=== PATIENT | female | born 1995 | race American Indian/Alaskan Native ===

== ENCOUNTER 2018-07-23 14:36 | Emergency (ER) | payer OTHER ==
--- NOTE | 2018-07-23 14:55 | Emergency Department Report ---
Blank Doc - Documentation Documentation: This is a 23 y.o. female that presents with hematuria and pelvic pain x 4 days. LMP 07/10/2018, A3. Ordered UA and hcg Fast track for further evaluation.
[2018-07-23 16:07] LABS: Bacteria,Urine 4+ /HPF (Negative); Bilirubin,Urine NEG (Negative); Blood,Urine NEG (Negative); Color,Urine Yellow (Yellow); Mucus,Urine FEW /HPF; Protein,Urine <15 mg/dL mg/dL (Negative); Urobilinogen,Urine < 2.0 mg/dL (<2.0)
[2018-07-23 16:13] LABS: HCG Qualitative,Urine Negative (Negative)
[2018-07-23 16:35] VITALS: BP 110/61
[2018-07-23] MEDS ORDERED: MACROBID PO ONE (16:44)
--- NOTE | 2018-07-23 16:55 | Emergency Department Report ---
HPI - General Chief Complaint: Abdominal Pain Time Seen by Provider: 07/23/18 14:52 - HPI HPI: 23 year-old female presents to the emergency department with complaint of a few days of some lower abdominal and/or pelvic discomfort. She denies any dysuria but says that she has noticed some blood in her urine has also had some mild pinkish vaginal discharge. She denies any past medical history. She has not taken anything for her symptoms prior to presentation. She does admit to one previous episode of an ovarian cyst and thought that this could be a recurrent issue. She does not have any primary care physician or [facility]. ED Past Medical Hx - Past Medical History Additional medical history: Ovarian cyst - Surgical History Past Surgical History?: No - Social History Smoking Status: Never Smoker Substance Use Type: Marijuana - Medications Home Medications: Home Medications Medication Instructions Recorded Confirmed Last Taken Type Nitrofurantoin Monohyd/M-Cryst 100 mg PO BID #14 capsule 07/23/18 Unknown Rx [Macrobid 100 mg Capsule] RX: Mupirocin [Bactroban 2% OINT] 1 applic TP TID PRN #1 tube 07/23/18 Unknown Rx metroNIDAZOLE [Flagyl] 500 mg PO Q12HR #14 tab 07/23/18 Unknown Rx ED Review of Systems ROS: Stated complaint: ABD PAIN/BLEEDING IN URINE Other details as noted in HPI Comment: All other systems reviewed and negative Constitutional: denies: chills, fever Eyes: denies: eye pain, vision change ENT: denies: ear pain, throat pain Respiratory: denies: cough, shortness of breath Cardiovascular: denies: chest pain, palpitations Gastrointestinal: denies: vomiting, diarrhea Genitourinary: hematuria, discharge. denies: dysuria Musculoskeletal: denies: back pain, arthralgia Skin: denies: rash, lesions Neurological: denies: headache, weakness Physical Exam - Physical Exam Vital Signs: Vital Signs 07/23/18 07/23/18 14:41 16:35 Temperature 98 F Pulse Rate 84 73 Respiratory 18 14 Rate Blood Pressure 117/61 Blood Pressure 110/61 [Right] O2 Sat by Pulse 96 99 Oximetry Physical Exam: GENERAL: The patient is well-developed well-nourished. HEENT: Normocephalic. Atraumatic. Patient has moist mucous membranes. EYES: Extraocular motions are intact. NECK: Supple. Trachea is midline. CHEST/LUNGS: Clear to auscultation. There is no respiratory distress noted. HEART/CARDIOVASCULAR: Regular. There is no tachycardia. There is no obvious murmur. ABDOMEN: Abdomen is soft, nontender. Patient has normal bowel sounds. There is no abdominal distention. SKIN: Skin is warm and dry. NEURO: The patient is awake, alert, and oriented. The patient is cooperative. The patient has no focal neurologic deficits. The patient has normal speech. MUSCULOSKELETAL: There is no tenderness or deformity. There is no evidence of acute injury. PELVIC: There was a moderate amount of thin malodorous discharge seen in the vaginal vault. No rash or lesions seen. ED Course Vital Signs 07/23/18 07/23/18 14:41 16:35 Temperature 98 F Pulse Rate 84 73 Respiratory 18 14 Rate Blood Pressure 117/61 Blood Pressure 110/61 [Right] O2 Sat by Pulse 96 99 Oximetry - Reevaluation(s) Reevaluation #1: 07/23/18 21:36 pelvic examination was done with nurse Valerio at bedside as a mail handler. ED Medical Decision Making - Radiology Data Radiology results: report reviewed PROCEDURE: US TRANSVAGINAL TECHNIQUE: HISTORY: pelvic pain COMPARISONS: FINDINGS: Real-time ultrasound of the pelvis was performed by transabdominal and endovaginal technique. The uterus measures 8.6 x 4.2 x 5.8 cm. There is a fundal leiomyoma 1.1 x 1.2 x 1.2 cm. There is an IUD which appears to lie in the lower uterine segment. The distance from the superior margin of the IUD to the superior aspect of the endometrial canal is approximately 3.4 cm. Inferiorly, the anterior aspect of the IUD appears to extend to a distance approximately 2.1 cm proximal to the external os. The right ovary measures 3.9 x 2.1 x 3.3 cm the left ovary 3.8 x 2.1 x 3.5 cm. There is no adnexal mass or evidence of ovarian torsion. IMPRESSION: IUD in lower uterine segment Normal ovaries This document is electronically signed by Phillip Coombs MD., July 23 2018 07:43:54 PM ET Transcribed By: CRISTIANO Dictated By: PHILLIP COOMBS MD Electronically Authenticated By: PHILLIP COOMBS MD Signed Date/Time: 07/23/181944 - Medical Decision Making The patient presents with a few days of some pelvic discomfort and some vaginal discharge. She has a urinary tract infection. Negative for . The wet prep was positive for bacterial vaginosis but negative for trichomoniasis. We sent a sample for gonorrhea and Chlamydia but it will take a few days to return. Ultrasound was done that does not show any ovarian torsion, cyst, or any other acute processes. She'll be started on Macrobid and Flagyl. She's been given referrals for primary care and [facility]. She will return to ER with any worsening of her symptoms or any acute distress. - Differential Diagnosis BV, trichomoniasis, UTI, , fibroids Critical Care Time: No Critical care attestation.: If time is entered above; I have spent that time in minutes in the direct care of this critically ill patient, excluding procedure time. ED Disposition Clinical Impression: BV (bacterial vaginosis) UTI (urinary tract infection) Qualifiers: Urinary tract infection type: acute cystitis Hematuria presence: with hematuria Qualified Code(s): N30.01 - Acute cystitis with hematuria Disposition: DC-01 TO HOME OR SELFCARE Is pt being admited?: No Condition: Stable Instructions: Bacterial Vaginosis (ED), Urinary Tract Infection in Women (ED) Additional Instructions: Please follow up with a primary care physician and [facility]. Return to the emergency Department with any worsening of symptoms or any acute distress. Take the antibiotics as prescribed. As we discussed, the medication that have been prescribed to treat the bacterial vaginosis, Flagyl/metronidazole, has a very bad reaction with mixed with alcohol of any quantity. Do not drink any alcohol for at least 2 days after finishing the antibiotic. Prescriptions: metroNIDAZOLE [Flagyl] 500 mg PO Q12HR #14 tab RX: Mupirocin [Bactroban 2% OINT] 1 applic TP TID PRN #1 tube PRN Reason: Rash Nitrofurantoin Monohyd/M-Cryst [Macrobid 100 mg Capsule] 100 mg PO BID #14 capsule Referrals: JASON BRAR MD [Primary Care Provider] - 3-5 Days Forms: [facility] and Prevention Time of Disposition: 21:38
[2018-07-23] MEDS ORDERED: FLAGYL PO ONE (17:58)
--- NOTE | 2018-07-23 19:45 | Ultrasound Report ---
PROCEDURE: US TRANSVAGINAL TECHNIQUE: HISTORY: pelvic pain COMPARISONS: FINDINGS: Real-time ultrasound of the pelvis was performed by transabdominal and endovaginal techniqu e. The uterus measures 8.6 x 4.2 x 5.8 cm. There is a fundal leiomyoma 1.1 x 1.2 x 1.2 cm. There is an I UD which appears to lie in the lower uterine segment. The distance from the superior margin of the IU D to the superior aspect of the endometrial canal is approximately 3.4 cm. Inferiorly, the anterior a spect of the IUD appears to extend to a distance approximately 2.1 cm proximal to the external os. The right ovary measures 3.9 x 2.1 x 3.3 cm the left ovary 3.8 x 2.1 x 3.5 cm. There is no adnexal ma ss or evidence of ovarian torsion. IMPRESSION: IUD in lower uterine segment Normal ovaries This document is electronically signed by Omar Coombs MD., July 23 2018 07:43:54 PM ET
--- NOTE | 2018-07-23 19:45 | Ultrasound Report ---
PROCEDURE: US PELVIS DUPLEX DOPPLER COMP HISTORY: pelvic pain FINDINGS: Real-time ultrasound of the pelvis was performed by transabdominal and endovaginal techniqu e. The uterus measures 8.6 x 4.2 x 5.8 cm. There is a fundal leiomyoma 1.1 x 1.2 x 1.2 cm. There is an I UD which appears to lie in the lower uterine segment. The distance from the superior margin of the IU D to the superior aspect of the endometrial canal is approximately 3.4 cm. Inferiorly, the anterior a spect of the IUD appears to extend to a distance approximately 2.1 cm proximal to the external os. The right ovary measures 3.9 x 2.1 x 3.3 cm the left ovary 3.8 x 2.1 x 3.5 cm. There is no adnexal ma ss or evidence of ovarian torsion. IMPRESSION: IUD in lower uterine segment Normal ovaries This document is electronically signed by Omar Coombs MD., July 23 2018 07:43:42 PM ET
== END 2018-07-23 19:57 | disposition home or self-care (01) ==
LOC: ED 14:36
DX: N76.0 Acute vaginitis (principal); N39.0 Urinary tract infection, site not specified
CPT/HCPCS: 76830; 81001; 81025; 87210; 87591; 93975; 99284

== ENCOUNTER 2021-02-11 21:33 | Emergency (ER) | payer SELFPAY ==
[2021-02-11 22:49] VITALS: BP 135/90
[2021-02-11] MEDS ORDERED: TETANUS,DIPH,PERTUSS(ACELL) VACCINE 0.5 ML SYRINGE IM ONE (22:52)
[2021-02-11] MEDS ORDERED: ACETAMINOPHEN 500 MG TAB PO ONE (22:52)
[2021-02-11] MEDS ORDERED: LIDOCAINE-MPF (1%) 10 MG/1 ML VIAL 5 ML INFILTRATI ONE (22:52)
--- NOTE | 2021-02-12 01:45 | Emergency Department Report ---
ED Upper Extremity Inj HPI - General Chief Complaint: Wound/Laceration Stated Complaint: CUT TO ARM Source: patient Mode of arrival: Ambulatory Limitations: No Limitations - History of Present Illness Initial Comments: Patient is a A0 25-year-old female with no past medical history presents to the ED with complaint of acute onset persistent painful bleeding right upper laceration after she accidentally punctured her right upper with a sharp sewing needle that she had kept in the car. Patient states that she was trying to move particular object that was next to this needle when she accidentally pressed against the sharp edge of the needle which pierced through her right upper arm about 2 hours ago. Patient states that she is not up-to-date with her vaccinations including tetanus. Patient denies numbness and tingling or weakness of right arm, dizziness, syncope, nausea and vomiting, chest pain or shortness of breath. MD Complaint: Injury to:: right, arm (upper arm laceration) -: Sudden, hour(s) (2) Other Extremity Injury: Arm: Right (left upper arm laceration) Other Injuries: none Handedness: right Place: work Severity scale (0 -10): 7 Improves With: none Worsens With: movement of extremity Context: laceration Associated Symptoms: denies other symptoms. denies: weakness, numbness, neck pain, suspects foreign body, nausea/vomiting, heard/felt popping sensat - Related Data Previous Rx's Medication Instructions Recorded Last Taken Type Mupirocin [Bactroban 2% OINT] 1 applic TP TID PRN #1 tube 07/23/18 Unknown Rx Nitrofurantoin Monohyd/M-Cryst 100 mg PO BID #14 capsule 07/23/18 Unknown Rx [Macrobid 100 mg Capsule] metroNIDAZOLE [Flagyl] 500 mg PO Q12HR #14 tab 07/23/18 Unknown Rx Ibuprofen [Motrin] 600 mg PO Q8H PRN #30 tablet 02/12/21 Unknown Rx cephALEXin [Keflex] 500 mg PO Q12HR #20 cap 02/12/21 Unknown Rx Allergies Allergy/AdvReac Type Severity Reaction Status Date / Time No Known Allergies Allergy Unverified 07/23/18 14:37 ED Review of Systems ROS: Stated complaint: CUT TO ARM Other details as noted in HPI Constitutional: denies: chills, fever Eyes: denies: eye pain, eye discharge, vision change ENT: denies: ear pain, throat pain Respiratory: denies: cough, shortness of breath, wheezing Cardiovascular: denies: chest pain, palpitations Endocrine: no symptoms reported Gastrointestinal: denies: abdominal pain, nausea, diarrhea Genitourinary: denies: urgency, dysuria, discharge Musculoskeletal: arthralgia (right upper arm pain due to a bleeding laceration wound). denies: back pain, joint swelling Skin: other (Bleeding laceration wound on right upper arm). denies: rash, lesions Neurological: denies: headache, weakness, paresthesias Psychiatric: denies: anxiety, depression Hematological/Lymphatic: denies: easy bleeding, easy bruising ED Past Medical Hx - Past Medical History Additional medical history: Ovarian cyst - Social History Smoking Status: Never Smoker Substance Use Type: Marijuana - Medications Home Medications: Home Medications Medication Instructions Recorded Confirmed Last Taken Type Mupirocin [Bactroban 2% OINT] 1 applic TP TID PRN #1 tube 07/23/18 Unknown Rx Nitrofurantoin Monohyd/M-Cryst 100 mg PO BID #14 capsule 07/23/18 Unknown Rx [Macrobid 100 mg Capsule] metroNIDAZOLE [Flagyl] 500 mg PO Q12HR #14 tab 07/23/18 Unknown Rx Ibuprofen [Motrin] 600 mg PO Q8H PRN #30 tablet 02/12/21 Unknown Rx cephALEXin [Keflex] 500 mg PO Q12HR #20 cap 02/12/21 Unknown Rx ED Physical Exam - General Limitations: No Limitations General appearance: alert, in no apparent distress - Head Head exam: Present: atraumatic, normocephalic, normal inspection - Eye Eye exam: Present: normal appearance, PERRL, EOMI Pupils: Present: normal accommodation - ENT ENT exam: Present: normal exam, normal orophraynx, mucous membranes moist, TM's normal bilaterally, normal external ear exam - Neck Neck exam: Present: normal inspection, full ROM - Respiratory Respiratory exam: Present: normal lung sounds bilaterally. Absent: respiratory distress, wheezes, rales, rhonchi, chest wall tenderness, accessory muscle use, decreased breath sounds, prolonged expiratory - Cardiovascular Cardiovascular Exam: Present: regular rate, normal rhythm, normal heart sounds. Absent: systolic murmur, diastolic murmur, rubs, gallop - GI/Abdominal GI/Abdominal exam: Present: soft, normal bowel sounds. Absent: tenderness, guarding, rebound, hyperactive bowel sounds, hypoactive bowel sounds, organomegaly - Extremities Exam Extremities exam: Present: normal inspection, full ROM, tenderness (Palpable right upper arm tenderness due to a bleeding 2 cm laceration wound), normal capillary refill - Back Exam Back exam: Present: normal inspection, full ROM. Absent: tenderness, CVA tenderness (R), CVA tenderness (L), muscle spasm, paraspinal tenderness, vertebral tenderness - Neurological Exam Neurological exam: Present: alert, oriented X3, CN II-XII intact, normal gait, reflexes normal - Psychiatric Psychiatric exam: Present: normal affect, normal mood - Skin Skin exam: Present: warm, dry, intact, normal color, other (Bleeding 2 cm laceration wound on right upper arm). Absent: rash ED Course Vital Signs 02/11/21 22:48 Temperature 97.4 F L Pulse Rate 82 Respiratory 16 Rate Blood Pressure 135/90 [Left] O2 Sat by Pulse 100 Oximetry - Laceration /Wound Repair Right Arm Wound Location: upper extremity (left upper arm) Wound Length (cm): 2 Wound's Depth, Shape: superficial, linear Wound Explored: contaminated Irrigated w/ Saline (ccs): 200 Betadine Prep?: Yes Anesthesia: 1% Lidocaine Volume Anesthetic (ccs): 5 Wound Debrided: extensive Wound Repaired With: sutures Suture Size/Type: 4:0, proline Number of Sutures: 4 Layer Closure?: No Sterile Dressing Applied?: Yes Progress: The patient tolerated the procedure well. The wound was then dressed appropriately the patient will discharge home on pain medication and prophylactic antibiotics. ED Medical Decision Making - Medical Decision Making This is a A0 25-year-old female with no past medical history presents to the ED with complaint of acute onset persistent painful bleeding right upper laceration after she accidentally punctured her right upper with a sharp sewing needle that she had kept in the car. Patient states that she was trying to move particular object that was next to this needle when she accidentally pressed against the sharp edge of the needle which pierced through her right upper arm about 2 hours ago. Patient states that she is not up-to-date with her vaccinations including tetanus. In the ED, patient is alert and oriented x3 and is not in any distress. Patient was treated for pain in the ED and also received booster tetanus vaccinations. The right upper arm bleeding laceration wound was cleaned extensively and sutured per protocol. Patient tolerated procedure well. The wound was then dressed appropriately and the patient was discharged home on pain medications and prophylactic antibiotics. Patient was advised to follow-up with her primary care physician in 7 to 10 days or return to the ED immediately if symptoms get worse. Patient was otherwise advised to return to the ED or to her primary care physician in 12 to 14 days for suture removal. - Differential Diagnosis laceration; puncture wound; arm contusion Critical care attestation.: If time is entered above; I have spent that time in minutes in the direct care of this critically ill patient, excluding procedure time. ED Disposition Clinical Impression: Laceration of right upper arm without complication Qualifiers: Encounter type: initial encounter Qualified Code(s): S41.111A - Laceration without foreign body of right upper arm, initial encounter Disposition: HOME / SELF CARE / HOMELESS Is pt being admited?: No Does the pt Need Aspirin: No Condition: Stable Instructions: Laceration Care, Adult, [id number], Sutured Wound Care, [id number] Additional Instructions: Take medication with food, drink plenty of fluids and follow-up with your primary care physician in 7 to 10 days for reevaluation. Return to the ED immediately if symptoms get worse. Otherwise return to the ED or to your primary care physician in 12 to 14 days for suture removal. Prescriptions: cephALEXin [Keflex] 500 mg PO Q12HR #20 cap Ibuprofen [Motrin] 600 mg PO Q8H PRN #30 tablet PRN Reason: Pain Referrals: [facility] [Provider Group] - 7-10 days Time of Disposition: 01:44 Print Language: ICELANDIC
[2021-02-12] MEDS ORDERED: TETANUS,DIPH,PERTUSS(ACELL) VACCINE 0.5 ML SYRINGE IM ONE (02:15)
== END 2021-02-12 03:00 | disposition home or self-care (01) ==
LOC: ED 21:33
DX: S41.111A Laceration without foreign body of right upper arm, initial encounter (principal); F12.90 Cannabis use, unspecified, uncomplicated; Z79.899 Other long term (current) drug therapy; W27.3XXA Contact with needle (sewing), initial encounter; Y93.89 Activity, other specified; Y92.89 Other specified places as the place of occurrence of the external cause; Y99.8 Other external cause status
CPT/HCPCS: 90471; 90715; 99282